=== PATIENT | male | born 1980 | race Two or more races ===

== ENCOUNTER 2025-06-19 11:57 | Emergency (ER) | payer OTHER ==
[~2025-06-19] VITALS: Ht 170.2 cm; Wt 86.2 kg
[2025-06-19 12:08] VITALS: BP 130/84; TEMP 98.2; O2SAT 96
[2025-06-19] MEDS ORDERED: IBUP-1955 PO (12:54)
== END 2025-06-19 13:25 | disposition home or self-care (01) ==
LOC: ER 12:08
DX: S00.81XA Abrasion of other part of head, initial encounter (principal); W22.8XXA Striking against or struck by other objects, initial encounter; Y93.89 Activity, other specified; Y92.89 Other specified places as the place of occurrence of the external cause; Y99.8 Other external cause status